=== PATIENT | female | born 1990 | race Two or more races ===

== ENCOUNTER 2017-02-27 22:37 | Inpatient (IN) | payer OTHER ==
[~2017-02-27] VITALS: Ht 152.4 cm; Wt 65.0 kg
[2017-02-27 23:01] VITALS: BP 132/91
[2017-02-27] MEDS ORDERED: LR 1,000 ML IV SCH (23:31)
[2017-02-28] VITALS (37 sets, daily range): BP systolic 106–134; BP diastolic 54–85
[2017-02-28] MEDS ORDERED: PENICILLIN G POTASSIUM IV 5 MU in D5W MINI-BAG PLUS 100 ML IV STA (00:22)
[2017-02-28 00:46] LABS: MEAN CORPUSCULAR HEMOGLOBIN 27.6 pg (27.0-33.0); MEAN CORPUSCULAR HGB CONC 33.2 g/dl (32.0-36.5); MEAN CORPUSCULAR VOLUME 83.1 fl (80.0-96.0); RED CELL DISTRIBUTION WIDTH 13.3 % (11.5-14.5); WHITE BLOOD COUNT 13.4 K/mm3 (4.0-10.0)
[2017-02-28] MEDS ORDERED: LR 1,000 ML IV SCH ×2 (02:49→15:54)
[2017-02-28] MEDS ORDERED: OXYTOCIN DRIP 30 UNITS in APPROPRIATE DILUENT 1 EA IV SCH ×2 (03:00→15:54)
[2017-02-28] MEDS: PENICILLIN G POTASSIUM IV 2.5 MU in D5W 100 ML IV SCH ×3 (05:11→13:21)
[2017-02-28] MEDS ORDERED: FENTANYL 2MCG/ML ROPIVACAINE 0.2% IN 0.9% NACL 200ML IVBAG As Ordered ONE (07:06)
[2017-02-28 07:10] LABS: MEAN CORPUSCULAR HEMOGLOBIN 28.2 pg (27.0-33.0); MEAN CORPUSCULAR HGB CONC 33.5 g/dl (32.0-36.5); MEAN CORPUSCULAR VOLUME 84.2 fl (80.0-96.0); RED CELL DISTRIBUTION WIDTH 13.5 % (11.5-14.5); WHITE BLOOD COUNT 12.8 K/mm3 (4.0-10.0)
[2017-02-28 10:00] LABS: ALT/SGPT 20 U/L (12-78); AST/SGOT 17 U/L (15-37); BILIRUBIN,TOTAL 0.2 MG/DL (0.2-1.0); CREATININE FOR GFR 0.57 MG/DL (0.55-1.02); GLOMERULAR FILTRATION RATE > 60.0 (>60); URIC ACID 3.8 MG/DL (2.6-6.0)
[2017-02-28 10:16] LABS: MEAN CORPUSCULAR HEMOGLOBIN 29.5 pg (27.0-33.0); MEAN CORPUSCULAR HGB CONC 34.8 g/dl (32.0-36.5); MEAN CORPUSCULAR VOLUME 84.5 fl (80.0-96.0); RED CELL DISTRIBUTION WIDTH 13.3 % (11.5-14.5)
[2017-02-28] MEDS ORDERED: EPIDURAL COMMENT XX SCH (11:00)
[2017-02-28] MEDS ORDERED: REFRIGERATOR IV KEYS XX PRN (11:00)
[2017-02-28] MEDS ORDERED: EPIDURAL/PCA KEYS XX PRN (11:00)
[2017-02-28] MEDS ORDERED: FENTANYL/ROPIVACAINE/NACL BAG 200 ML EPIDURAL SCH (11:00)
[2017-02-28] MEDS ORDERED: NALOXONE INJ 0.4 MG/1 ML VIAL (J2310) IV PRN ×3 (11:00→14:58)
[2017-02-28] MEDS ORDERED: diphenhydrAMINE INJ 50MG/ML VIAL (J1200) IV PRN (11:00)
[2017-02-28] MEDS ORDERED: LACTATED RINGER'S 1000 ML IV PRN (11:00)
[2017-02-28] MEDS ORDERED: ePHEDrine SULFATE 25 MG/5 ML(5MG/ML) SYRINGE IV PRN (11:00)
[2017-02-28] MEDS ORDERED: ONDANSETRON 4MG/2ML VIAL (J2405) IV PRN ×3 (11:00→15:45)
[2017-02-28] MEDS ORDERED: BICITRA 30ML SOLN UDC As Ordered ONE (13:32)
[2017-02-28] MEDS ORDERED: ceFAZolin 2 GM/D5W 50 ML IV BAG (J0690) As Ordered ONE (13:32)
[2017-02-28] MEDS ORDERED: BUPIVACAINE HCL 0.25% 30 ML VIAL SC ONE (13:45)
[2017-02-28] MEDS ORDERED: BICITRA 30ML SOLN UDC PO ONE (13:45)
[2017-02-28] MEDS ORDERED: OXYTOCIN INJ 10 UNITS/ML VIAL (J2590) As Ordered ONE ×2 (14:00→14:42)
[2017-02-28] MEDS ORDERED: ONDANSETRON 4MG/2ML VIAL (J2405) As Ordered ONE (14:01)
[2017-02-28] MEDS ORDERED: KETOROLAC 60 MG/2 ML VIAL (J1885) As Ordered ONE (14:01)
[2017-02-28] MEDS ORDERED: MORPHINE PRES-FREE INJ 10 MG/10 ML VIAL (J2274) As Ordered ONE (14:32)
[2017-02-28] MEDS ORDERED: MIDAZOLAM INJ 2 MG/2 ML VIAL (J2250) As Ordered ONE (14:41)
[2017-02-28 14:50] LABS: CORD GAS ABE A -2.3; CORD GAS HCO3 A 26.6 MEQ/L; CORD GAS O2 SAT A 25.2 %; CORD GAS PCO2 A 61.3 mmHg; CORD GAS PH A 7.255 UNITS; CORD GAS PO2 A 15.6 mmHg; CORD GAS SBC A 20.5 MEQ/L; CORD GAS TCO2 A 28.5 MEQ/L
[2017-02-28 14:53] LABS: CORD GAS ABE V -2.6; CORD GAS HCO3 V 24.1 MEQ/L; CORD GAS O2 SAT V 56.4 %; CORD GAS PH V 7.318 UNITS; CORD GAS PO2 V 24.1 mmHg; CORD GAS SBC V 21.1 MEQ/L; CORD GAS TCO2 V 25.5 MEQ/L
[2017-02-28] MEDS ORDERED: METOCLOPRAMIDE INJ 10MG/2ML VIAL (J2765) IV PRN (14:58)
[2017-02-28] MEDS ORDERED: NALBUPHINE HCL 10 MG/ML AMP (J2300) IV PRN ×2 (14:58→15:45)
[2017-02-28] MEDS ORDERED: fentaNYL 100 MCG/2 ML INJECTION (J3010) IV PRN (15:45)
[2017-02-28] MEDS ORDERED: PERCOCET 5MG/325MG TAB PO PRN (15:45)
[2017-02-28] MEDS ORDERED: MOM 30ML SUSPENSION UDC PO PRN (16:00)
[2017-02-28] MEDS ORDERED: METHYLERGONOVINE MALEATE 0.2 MG TAB PO PRN (16:00)
[2017-02-28] MEDS ORDERED: DOCUSATE SODIUM 100 MG CAP PO PRN (16:00)
[2017-02-28] MEDS ORDERED: ANUSOL HC CREAM 30GM TOP PRN (16:00)
[2017-02-28] MEDS ORDERED: OXYTOCIN INJ 10 UNITS/ML VIAL (J2590) IV ONE (16:00)
[2017-02-28] MEDS ORDERED: RHOGAM 300 MCG (1500 IU) INJ (J2790) IM SCH (16:00)
[2017-02-28] MEDS ORDERED: MEASLES,MUMPS,RUBELLA VACCINE INJ (MMR-II) (90707) SC SCH (16:00)
[2017-02-28 16:42] LABS: MEAN CORPUSCULAR HEMOGLOBIN 27.9 pg (27.0-33.0); MEAN CORPUSCULAR HGB CONC 33.5 g/dl (32.0-36.5); MEAN CORPUSCULAR VOLUME 83.4 fl (80.0-96.0); RED CELL DISTRIBUTION WIDTH 13.4 % (11.5-14.5); WHITE BLOOD COUNT 18.5 K/mm3 (4.0-10.0)
[2017-02-28] MEDS: IBUPROFEN 800 MG TAB PO SCH (23:47)
[2017-03-01 01:55] VITALS: BP 118/58
[2017-03-01 06:34] VITALS: BP 115/71
--- NOTE | 2017-03-01 07:02 | IPN ---
DATE: 03/01/2017 SUBJECTIVE: This lady is a 26-year-old 1 now para 1, had spontaneous rupture of membranes at 38 and two days gestation, had a primary section because of non-reassuring heart tones with heart rates based in the 80s, failed to respond to resuscitation. She also has undiagnosed idiopathic thrombocytopenic purpura (ITP), etiology unknown. She delivered a live female 5 pounds 15 ounces, 2694 grams, scores of 9 and 9 at one and five minutes respectively. The arterial pH was 7.25, base excess -2.3, venous pH 7.31, base excess -2.6. Her initial hemoglobin was 10.7, hematocrit 32.3 and platelets were 102. Followup section and before removal of the epidural catheter, hemoglobin 9.8, hematocrit 29.3, platelets are 79. The 0600 blood work is not available at the present time. OBJECTIVE: VITAL SIGNS: Her vital signs today her blood pressure is 118/58, respirations 16, pulse 83 and temperature 98.3. We discussed phlebitis, cystitis, mastitis, metritis and cellulitis, diet, excise, pain management, perineal, breast and wound care. She is planning on using oral contraceptives. We counseled regarding six-week checkup and also possibly investigation of ITP; is it gestational related or is there some ongoing issue. HEENT: She is presently normocephalic, atraumatic. Neck full range of motion. Pupils equal and reactive to light. Distal pulses are symmetric. No evidence of deep venous thrombosis (DVT), pulmonary embolism (PE) or superficial phlebitis. CHEST: Is clear bilaterally to bases. No wheezes or rhonchi. No costovertebral angle tenderness. ABDOMEN: Soft. Bowel sounds four quadrants noted. Incision is clean and dry. She has no rash lesions or pruritus. No arthralgia, myalgia. No complaints of cough, wheezes, shortness of breath or dyspnea on exertion. No chest pain, not bleeding. No ecchymosis, no bruising. She is neuro complete. She has no incontinency, urgency or frequency, nausea, vomiting, diarrhea or constipation. She has no diabetic issues. Does not smoke, drink, abuse drugs. She is and there is no domestic violence and there is no family history of immune deficiency or hematological issues. We will plan to give her medications on discharge. We counseled regarding oral contraceptive pills (OCPs). We counseled regarding further investigations for ITP, presently doing well. Plans on discharge tomorrow.
[2017-03-01 07:17] LABS: MEAN CORPUSCULAR HEMOGLOBIN 27.5 pg (27.0-33.0); MEAN CORPUSCULAR HGB CONC 32.9 g/dl (32.0-36.5); MEAN CORPUSCULAR VOLUME 83.5 fl (80.0-96.0); RED CELL DISTRIBUTION WIDTH 13.6 % (11.5-14.5); WHITE BLOOD COUNT 10.8 K/mm3 (4.0-10.0)
[2017-03-01] MEDS: PRENATAL VITAMIN TAB PO SCH (07:22)
[2017-03-01] MEDS: IBUPROFEN 800 MG TAB PO SCH ×3 (07:22→23:49)
--- NOTE | 2017-03-01 07:41 | RO ---
DATE OF PROCEDURE: 02/28/2017 PREOPERATIVE DIAGNOSIS: Nonreassuring heart tracing remote from delivery, ITP, GBS status unknown. POSTOPERATIVE DIAGNOSIS: Nonreassuring heart tracing remote from delivery, ITP, GBS status unknown. OPERATION PROPOSED: Primary section. OPERATION PERFORMED: Primary section. SURGEON: Dr. Kam Haines. ACTUARIAL ANALYST: Hawa. ANESTHESIA: Epidural plus local anesthetic for intraperitoneal procedures. ESTIMATED BLOOD LOSS: 400 mL Under adequate anesthesia, prepped, draped in the supine position, Red catheter in the bladder draining clear urine. 2 grams of Ancef given preop. Time-out performed. Sequentials on board. Pfannenstiel incision was made two fingerbreadths above symphysis pubis passing through abdominal layers securing hemostasis. We noticed this lady had significant amount of varicosities in the fat, in the fascia, in the peritoneum which were all cauterized on the way in. The bladder was reflected well down anteriorly. Low transverse incision was made into the uterus. Clear Liqui was noted. Delivered a live female infant weighing 2694 grams, 5 pounds 15 ounces, of 9 and 9 at one and five [address]. Dr. Chopra in attendance for resuscitation. Arterial and venous pH were performed. The arterial blood gas was 7.25, base excess -2.3, venous pH 7.31, base excess -2.6. Her initial hemoglobin was 10.7, hematocrit 32.3 and platelets were 102. Her blood count post delivery, her hemoglobin was 9.8, hematocrit 29.3 and platelets were 79. The uterus contracted well under Pitocin. The uterus was swept clean. The lower segment was oversewn in usual fashion in two layers and reperitonealization was performed. With instrument and pad count correct, both ovaries and tubes appeared to be normal. The abdomen was then closed, running stitch for the peritoneum, same for the fascia, interrupted for subcu. Dexon to the skin. Marcaine 0.25% 10 mL, spray and Telfa were performed. The patient was then taken to recovery in good condition. Repeat of her CBC will be done for platelet count prior to removal of the epidural catheter.
[2017-03-01 10:00] VITALS: BP 117/59
[2017-03-01 14:00] VITALS: BP 123/61
[2017-03-01 17:41] VITALS: BP 122/60
[2017-03-01] MEDS ORDERED: PERCOCET 5MG/325MG TAB PO PRN ×2 (20:15)
[2017-03-01 22:10] VITALS: BP 134/75
[2017-03-02 06:24] VITALS: BP 128/82
--- NOTE | 2017-03-02 07:36 | DSES ---
DATE OF ADMISSION: 02/27/2017 DATE OF DISCHARGE: 03/02/2017 This lady is a 26-year-old, 1, now para 1 admitted with spontaneous rupture of membranes at 38 and 2 weeks of gestation. She had a primary section because of idiopathic thrombocytopenic purpura (ITP) and nonreassuring heart strip and remote from delivery. She was 4 cm, -3 station, and head was not well applied. She delivered a live female , 5 pounds 15 ounces, 2694 grams, scores of 9 and 9 at one and five minutes, respectively. Arterial pH was 7.25, base excess -2.3, venous pH 7.31, base excess -2.6. Her initial hemoglobin was 10.7, hematocrit 32.3, and platelets were 102. She had a discharge hemoglobin of 9.4, hematocrit 28.5, and platelets were still low at 82.0. Etiology of the ITP is unknown and will have to be investigated at her 6-week checkup. On discharge, her blood pressure was 128/82, respirations 16, pulse 70, and temperature was 97.8. We discussed phlebitis, cystitis, mastitis, endometritis, cellulitis, diet, exercise, pain management, perineal, breast, and wound care. On discharge, she was given medications to take home. She was counseled regarding having a 2-week incision check and a 6-week check. On the rest of the examination, she was normocephalic, atraumatic. Neck full range of motions. Pupils equal and reactive to light. Distal pulses are symmetric. No evidence of deep venous thrombosis (DVT), pulmonary embolism (PE), or superficial phlebitis. No wheezes or rhonchi. No costovertebral angle (CVA) tenderness. Uterus 2 below. Lochia is moderate. Incision is clean and dry, and there are four quadrant bowel sounds. Perineum is intact. She has no rashes, lesions, or pruritus. No arthralgia, myalgia. No complaints of cough, wheezes, shortness of breath, or dyspnea on exertion. She is not bleeding. Neurologically complete. No incontinence, urgency, or frequency. No nausea, vomiting, diarrhea, or constipation. No diabetic issues. 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 PAST SURGICAL AND MEDICAL HISTORY: Unremarkable. FAMILY HISTORY: Is noncontributory. She does not smoke or drink, abuse drugs. She is . There is no domestic violence. IN SUMMARY: We have a 38 and 3 weeks of gestation admitted with spontaneous rupture of membranes with unknown etiology for ITP. She did not do her glucose at 28 weeks, so sugars were not performed. She was counseled regarding home care for incisional site, deep breathing exercises, and she was counseled regarding making an appointment for a 2-week incision check. Patient was discharged delivered. Edited: stanley 03/03/2017 2080
[2017-03-02] MEDS: PRENATAL VITAMIN TAB PO SCH (08:11)
[2017-03-02] MEDS: IBUPROFEN 800 MG TAB PO SCH (08:11)
[2017-03-02] MEDS ORDERED: OXYC1TAB23 PO (08:17)
[2017-03-02] MEDS ORDERED: PRENTAB9 PO (08:17)
[2017-03-02] MEDS ORDERED: MOM30SS PO (08:17)
[2017-03-02] MEDS ORDERED: COLA100C3 PO (08:17)
[2017-03-02] MEDS ORDERED: ANUS2.5C2 TOP (08:17)
[2017-03-02] MEDS ORDERED: IBUP-1114 PO (08:17)
== END 2017-03-02 16:45 | disposition home or self-care (01) | DRG 766 ==
LOC: M LDO 22:37 → M LDI 22:57 → M OBS 02-28 18:37
PROVIDERS: ADMIT Student in an Organized Health Care Education/Training Program; ATTEND Student in an Organized Health Care Education/Training Program
PROC: 10D00Z1 Extraction of Products of Conception, Low, Open Approach (ICD-10-PCS; principal; 2017-02-28 14:31)
DX: O42.02 Full-term premature rupture of membranes, onset of labor within 24 hours of rupture (principal); Z37.0 Single live birth; Z3A.37 37 weeks gestation of pregnancy; O76 Abnormality in fetal heart rate and rhythm complicating labor and delivery